=== PATIENT | male | born 1950 | race African-American/Black ===

== ENCOUNTER 2021-05-14 21:13 | Inpatient (IN) | payer MEDICARE, MEDICAID ==
[~2021-05-14] VITALS: Ht 182.9 cm; Wt 121.6 kg
[2021-05-14] MEDS: ALBUTEROL (0.083%) 2.5MG/3ML NEB HHN SCH ×3 (00:20→23:50)
[~2021-05-14 21:13] MED LIST: APIX5TAB PO; BUME2TAB7 PO; OXYC-662 MT
[2021-05-14] MEDS ORDERED: IPRATROPIUM BROMIDE (0.02%) 0.5MG/2.5ML NEB HHN STA (21:34)
[2021-05-14] MEDS ORDERED: DEXAMETHASONE 10 MG/ML VIAL IV ONE (21:45)
[2021-05-14 23:28] LABS: HEMATOCRIT. 47.9 % (42.0-52.0); HEMOGLOBIN. 15.2 g/dL (14.0-18.0); MEAN CORPUSCULAR VOLUME 75.8 fL (80.0-94.0); MEAN PLATELET VOLUME 9.7 fl (7.4-10.4); PLATELET 178 x1000/uL (130-400); RED BLOOD CELL COUNT 6.32 mill/uL (4.7-6.1); RED CELL DISTRIBUTION WIDTH 18.7 % (11.6-14.6)
[2021-05-14 23:38] LABS: CHLORIDE 101 mEq/L (98-107)
[2021-05-14 23:44] LABS: ETHANOL BLOOD < 10 mg/dL
[2021-05-14] MEDS ORDERED: VANCOMYCIN 1 G PREMIX 200 ML IV NR (23:45)
[2021-05-14 23:47] LABS: CREATINE KINASE 37 IU/L (39-308)
[2021-05-14 23:50] LABS: INR 1.2; PROTHROMBIN TIME 12.5 sec (9.6-11.0)
[2021-05-15] VITALS (24 sets, daily range): BP systolic 124–154; BP diastolic 68–116
[2021-05-15] MEDS ORDERED: CEFEPIME 1,000 MG in DEXTROSE 5% WATER 50 ML IV SCH
[2021-05-15 00:27] LABS: NUCLEATED RED BLOOD CELLS 2 /100 WBC; PLATELET ESTIMATE NORMAL
[2021-05-15] MEDS ORDERED: SODIUM POLYSTYRENE SULFONATE 15 G/60 ML BOT PO NR (01:00)
[2021-05-15] MEDS ORDERED: CALCIUM GLUCONATE 100MG/ML 10ML VIAL IV NR (01:00)
[2021-05-15] MEDS ORDERED: FUROSEMIDE 40MG/4ML VIAL IVP NR (01:00)
[2021-05-15] MEDS ORDERED: HYDRALAZINE 20MG/ML VIAL IV PRN (01:15)
[2021-05-15] MEDS ORDERED: ONDANSETRON HCL 4MG/2ML INJ IV PRN (01:15)
[2021-05-15] MEDS ORDERED: HYDROCODONE/ACETAMINOPHEN 5/325MG TABLET PO PRN (01:15)
[2021-05-15] MEDS ORDERED: MAGNESIUM/ALUMINUM HYDROXIDE/SIMETHICONE 30ML UDC PO PRN (01:15)
[2021-05-15] MEDS ORDERED: DIPHENHYDRAMINE 50MG/ML VIAL IV PRN (01:15)
[2021-05-15] MEDS ORDERED: GUAIFENESIN 200MG/10ML SUGAR FREE UDC PO PRN (01:15)
[2021-05-15] MEDS ORDERED: IPRATROPIUM/ALBUTEROL 0.5-3(2.5)MG/3ML NEB HHN PRN (01:15)
[2021-05-15] MEDS ORDERED: CLONIDINE 0.1MG TABLET PO PRN (01:15)
[2021-05-15] MEDS ORDERED: ACETAMINOPHEN 325MG TABLET PO PRN (01:15)
[2021-05-15] MEDS ORDERED: MORPHINE SULFATE 2 MG/ML CPJ (NOT FOR IM USE) IV PRN (01:15)
[2021-05-15] MEDS ORDERED: ENOXAPARIN 150MG/ML SYR SUBCUT SCH (02:00)
[2021-05-15] MEDS: LORAZEPAM 2MG/ML CPJ IV PRN (02:43)
[2021-05-15 06:13] LABS: BG BASE EXCESS -0.5 mmol/L (-2.0-2.0); BG CARBOXYHEMOGLOBIN 1.2 % (0.5-1.5); BG DEOXYHEMOGLOBIN 4.4 % (0.0-5.0); BG FRACTION INSPIRED OXYGEN 100; BG HCO3 ACT 29.5 mmol/L (22.0-26.0); BG METHEMOGLOBIN 0.4 % (0.0-1.5); BG OXYGEN SATURATION 95.5 % (92.0-98.5); BG PCO2 72.2 mmHg (35.0-45.0); BG PH 7.229 (7.350-7.450); BG PO2 86.4 mmHg (75.0-100.0); BG SAMPLE SITE RIGHT RADIAL; BG TOTAL HEMOGLOBIN 16.5 g/dL (12.0-18.0); BG VENT MODE COOL AEROSOL
[2021-05-15] MEDS: SODIUM CHLORIDE 0.9% INJ 3ML FLUSH IVF SCH ×2 (06:39→13:05)
[2021-05-15 09:01] LABS: BG BASE EXCESS 0.2 mmol/L (-2.0-2.0); BG CARBOXYHEMOGLOBIN 0.5 % (0.5-1.5); BG DEOXYHEMOGLOBIN 2.4 % (0.0-5.0); BG HCO3 ACT 28.3 mmol/L (22.0-26.0); BG OXYGEN SATURATION 97.6 % (92.0-98.5); BG OXYHEMOGLOBIN 97.1 % (94.0-97.0); BG PCO2 60.1 mmHg (35.0-45.0); BG PH 7.291 (7.350-7.450); BG PO2 102.1 mmHg (75.0-100.0); BG SAMPLE SITE RIGHT RADIAL; BG TOTAL HEMOGLOBIN 15.9 g/dL (12.0-18.0); BG VENT MODE MASK - BIPAP
[2021-05-15] MEDS ORDERED: NALOXONE HCL 0.4MG/ML VIAL IV PRN (10:00)
[2021-05-15] MEDS ORDERED: AMLODIPINE 5MG TABLET PO SCH (10:00)
[2021-05-15] MEDS ORDERED: AMLO2.5T2 MT (10:32)
[2021-05-15] MEDS ORDERED: FURO-152 MT (10:32)
[2021-05-15] MEDS: FUROSEMIDE 40MG/4ML VIAL IVP SCH (11:01)
[2021-05-15 11:02] LABS: PHOSPHORUS 4.9 mg/dL (2.5-4.9)
[2021-05-15] MEDS ORDERED: LEVOFLOXACIN 500MG PREMIX 100 ML IV NR (12:00)
[2021-05-16] VITALS (14 sets, daily range): BP systolic 129–159; BP diastolic 64–105
[2021-05-16 01:40] LABS: CLARITY URINE CLEAR (CLEAR); COLOR URINE YELLOW (YELLOW); KETONES URINE NEGATIVE (NEGATIVE); LEUKOCYTE ESTERASE URINE NEGATIVE (NEGATIVE); NITRITE URINE NEGATIVE (NEGATIVE); OCCULT BLOOD URINE NEGATIVE (NEGATIVE); PROTEIN URINE TRACE (NEGATIVE); SPECIFIC GRAVITY URINE 1.017 (1.005-1.030)
[2021-05-16 05:43] LABS: CHLORIDE 102 mEq/L (98-107)
[2021-05-16 05:47] LABS: HEMOGLOBIN. 14.9 g/dL (14.0-18.0); MEAN CORPUSCULAR HEMOGLOBIN 24.5 pg (28.0-32.0); MEAN CORPUSCULAR VOLUME 75.9 fL (80.0-94.0); PLATELET 158 x1000/uL (130-400); RED BLOOD CELL COUNT 6.07 mill/uL (4.7-6.1); RED CELL DISTRIBUTION WIDTH 18.8 % (11.6-14.6)
[2021-05-16] MEDS ORDERED: SODIUM POLYSTYRENE SULFONATE 15 G/60 ML BOT PO SCH (08:00)
[2021-05-16] MEDS: FUROSEMIDE 40MG/4ML VIAL IVP SCH (08:08)
[2021-05-16] MEDS: METHYLPREDNISOLONE SOD SUCC 40 MG/ML VIAL IV SCH (08:08)
[2021-05-16] MEDS: AMLODIPINE 5MG TABLET PO SCH (08:09)
[2021-05-16 10:20] LABS: BG CARBOXYHEMOGLOBIN 0.8 % (0.5-1.5); BG DEOXYHEMOGLOBIN 5.1 % (0.0-5.0); BG FRACTION INSPIRED OXYGEN 32; BG HCO3 ACT 31.2 mmol/L (22.0-26.0); BG METHEMOGLOBIN 0.3 % (0.0-1.5); BG OXYGEN SATURATION 94.8 % (92.0-98.5); BG OXYHEMOGLOBIN 93.8 % (94.0-97.0); BG PCO2 62.7 mmHg (35.0-45.0); BG PH 7.315 (7.350-7.450); BG PO2 78.3 mmHg (75.0-100.0); BG SAMPLE SITE RIGHT RADIAL; BG TOTAL HEMOGLOBIN 15.8 g/dL (12.0-18.0); BG VENT MODE NASAL CANNULA
[2021-05-16 11:08] LABS: NUCLEATED RED BLOOD CELLS 3 /100 WBC
[2021-05-16 11:10] LABS: PLATELET ESTIMATE NORMAL
[2021-05-16] MEDS: LEVOFLOXACIN 250MG PREMIX 50 ML IV SCH (11:17)
[2021-05-16] MEDS: NYSTATIN 100,000 UNITS/ML 5ML UDC SSW SCH (17:19)
[2021-05-16] MEDS: GUAIFENESIN 600MG ER TABLET PO SCH (20:47)
[2021-05-16] MEDS: LORAZEPAM 2MG/ML CPJ IV PRN (22:13)
[2021-05-17] VITALS (24 sets, daily range): BP systolic 103–163; BP diastolic 49–119
[2021-05-17] MEDS: NYSTATIN 100,000 UNITS/ML 5ML UDC SSW SCH ×5 (00:27→23:32)
[2021-05-17 06:50] LABS: HEMATOCRIT. 50.2 % (42.0-52.0); HEMOGLOBIN. 16.1 g/dL (14.0-18.0); MEAN CORPUSCULAR HEMOGLOBIN 24.6 pg (28.0-32.0); MEAN CORPUSCULAR VOLUME 76.7 fL (80.0-94.0); MEAN PLATELET VOLUME 10.7 fl (7.4-10.4); PLATELET 171 x1000/uL (130-400); RED BLOOD CELL COUNT 6.55 mill/uL (4.7-6.1); RED CELL DISTRIBUTION WIDTH 19.2 % (11.6-14.6)
[2021-05-17 07:05] LABS: PHOSPHORUS 5.3 mg/dL (2.5-4.9)
[2021-05-17] MEDS: IPRATROPIUM/ALBUTEROL 0.5-3(2.5)MG/3ML NEB HHN SCH ×3 (08:39→20:25)
[2021-05-17] MEDS: AMLODIPINE 5MG TABLET PO SCH ×2 (09:00→09:15)
[2021-05-17] MEDS: GUAIFENESIN 600MG ER TABLET PO SCH ×3 (09:00→20:20)
[2021-05-17] MEDS: FUROSEMIDE 40MG/4ML VIAL IVP SCH (09:15)
[2021-05-17] MEDS: METHYLPREDNISOLONE SOD SUCC 40 MG/ML VIAL IV SCH ×3 (09:15→21:54)
[2021-05-17 10:18] LABS: BG BASE EXCESS 2.3 mmol/L (-2.0-2.0); BG CARBOXYHEMOGLOBIN 0.6 % (0.5-1.5); BG FRACTION INSPIRED OXYGEN 44; BG METHEMOGLOBIN 0.3 % (0.0-1.5); BG OXYGEN SATURATION 88.9 % (92.0-98.5); BG OXYHEMOGLOBIN 88.1 % (94.0-97.0); BG PCO2 72.2 mmHg (35.0-45.0); BG PH 7.265 (7.350-7.450); BG PO2 59.7 mmHg (75.0-100.0); BG SAMPLE SITE LEFT RADIAL; BG TOTAL HEMOGLOBIN 16.6 g/dL (12.0-18.0); BG VENT MODE NASAL CANNULA
[2021-05-17] MEDS: LORAZEPAM 2MG/ML CPJ IV PRN (10:41)
[2021-05-17] MEDS: LEVOFLOXACIN 250MG PREMIX 50 ML IV SCH (11:21)
[2021-05-17] MEDS ORDERED: FUROSEMIDE 40MG/4ML VIAL IVP SCH (11:45)
[2021-05-17 17:50] LABS: BG BASE EXCESS 2.1 mmol/L (-2.0-2.0); BG CARBOXYHEMOGLOBIN 0.4 % (0.5-1.5); BG DEOXYHEMOGLOBIN 10.5 % (0.0-5.0); BG FRACTION INSPIRED OXYGEN 70; BG HCO3 ACT 38.3 mmol/L (22.0-26.0); BG METHEMOGLOBIN 0.3 % (0.0-1.5); BG OXYGEN SATURATION 89.4 % (92.0-98.5); BG OXYHEMOGLOBIN 88.8 % (94.0-97.0); BG PH 7.067 (7.350-7.450); BG PO2 69.8 mmHg (75.0-100.0); BG SAMPLE SITE LEFT RADIAL; BG VENT MODE MASK - BIPAP
[2021-05-17] MEDS ORDERED: PHENYLEPHRINE 100 MG in DEXT 5% WATER 240 ML IV PRN (18:00)
[2021-05-17 19:04] LABS: BG BASE EXCESS -0.1 mmol/L (-2.0-2.0); BG CARBOXYHEMOGLOBIN 0.5 % (0.5-1.5); BG DEOXYHEMOGLOBIN 0.9 % (0.0-5.0); BG FRACTION INSPIRED OXYGEN 100; BG HCO3 ACT 27.9 mmol/L (22.0-26.0); BG METHEMOGLOBIN 0.3 % (0.0-1.5); BG OXYGEN SATURATION 99.1 % (92.0-98.5); BG OXYHEMOGLOBIN 98.3 % (94.0-97.0); BG PCO2 58.5 mmHg (35.0-45.0); BG PH 7.296 (7.350-7.450); BG PO2 159.6 mmHg (75.0-100.0); BG SAMPLE SITE ALINE; BG TOTAL HEMOGLOBIN 16.1 g/dL (12.0-18.0); BG VENT MODE VENT - AC
[2021-05-17] MEDS: PROPOFOL 10MG/ML 100ML 100 ML IV PRN (20:13)
[2021-05-18] VITALS (95 sets, daily range): BP systolic 79–139; BP diastolic 40–105
[2021-05-18] MEDS: IPRATROPIUM/ALBUTEROL 0.5-3(2.5)MG/3ML NEB HHN SCH ×4 (02:16→20:43)
[2021-05-18] MEDS: PROPOFOL 10MG/ML 100ML 100 ML IV PRN ×3 (03:27→21:25)
[2021-05-18 05:33] LABS: HEMATOCRIT. 42.2 % (42.0-52.0); HEMOGLOBIN. 13.8 g/dL (14.0-18.0); MEAN CORPUSCULAR HEMOGLOBIN 24.3 pg (28.0-32.0); MEAN CORPUSCULAR VOLUME 74.1 fL (80.0-94.0); MEAN PLATELET VOLUME 10.2 fl (7.4-10.4); PLATELET 133 x1000/uL (130-400); RED BLOOD CELL COUNT 5.69 mill/uL (4.7-6.1); RED CELL DISTRIBUTION WIDTH 18.6 % (11.6-14.6)
[2021-05-18 05:56] LABS: PHOSPHORUS 3.4 mg/dL (2.5-4.9)
[2021-05-18] MEDS: NYSTATIN 100,000 UNITS/ML 5ML UDC SSW SCH ×3 (06:00→16:47)
[2021-05-18] MEDS: METHYLPREDNISOLONE SOD SUCC 40 MG/ML VIAL IV SCH ×3 (07:01→21:35)
[2021-05-18] MEDS: AMLODIPINE 5MG TABLET PO SCH (08:16)
[2021-05-18] MEDS: GUAIFENESIN 600MG ER TABLET PO SCH ×2 (08:23→21:00)
[2021-05-18] MEDS: FUROSEMIDE 40MG/4ML VIAL IVP SCH (09:00)
[2021-05-18 09:26] LABS: BG BASE EXCESS 6.5 mmol/L (-2.0-2.0); BG DEOXYHEMOGLOBIN 3.5 % (0.0-5.0); BG FRACTION INSPIRED OXYGEN 50; BG HCO3 ACT 31.3 mmol/L (22.0-26.0); BG METHEMOGLOBIN 0.3 % (0.0-1.5); BG OXYGEN SATURATION 96.5 % (92.0-98.5); BG OXYHEMOGLOBIN 95.2 % (94.0-97.0); BG PCO2 44.9 mmHg (35.0-45.0); BG PH 7.461 (7.350-7.450); BG PO2 83.6 mmHg (75.0-100.0); BG SAMPLE SITE RIGHT RADIAL; BG TOTAL HEMOGLOBIN 15.3 g/dL (12.0-18.0); BG TOTAL RESPIRATORY RATE 16 b/min; BG VENT MODE VENT - AC
[2021-05-18 09:34] LABS: NUCLEATED RED BLOOD CELLS 7 /100 WBC; PLATELET ESTIMATE NORMAL
[2021-05-18] MEDS ORDERED: PANTOPRAZOLE SODIUM 40 MG/VIAL IV SCH (10:00)
[2021-05-18] MEDS: DEXT 5%/0.45% NACL 1000ML 1,000 ML IV SCH (10:42)
[2021-05-18 11:09] LABS: CREATINE KINASE 819 IU/L (39-308)
[2021-05-18] MEDS: CARVEDILOL 3.125 MG TABLET PO SCH ×2 (11:35→21:34)
[2021-05-18] MEDS: LEVOFLOXACIN 250MG PREMIX 50 ML IV SCH (12:20)
[2021-05-18 17:04] LABS: NUCLEATED RED BLOOD CELLS 21 /100 WBC; PLATELET ESTIMATE NORMAL
[2021-05-19] VITALS (97 sets, daily range): BP systolic 91–149; BP diastolic 50–107
[2021-05-19] MEDS: IPRATROPIUM/ALBUTEROL 0.5-3(2.5)MG/3ML NEB HHN SCH ×4 (01:11→21:00)
[2021-05-19] MEDS: METHYLPREDNISOLONE SOD SUCC 40 MG/ML VIAL IV SCH ×2 (05:43→17:54)
[2021-05-19] MEDS: DEXT 5%/0.45% NACL 1000ML 1,000 ML IV SCH (05:43)
[2021-05-19] MEDS: NYSTATIN 100,000 UNITS/ML 5ML UDC SSW SCH ×5 (05:44→23:45)
[2021-05-19 06:56] LABS: HEMATOCRIT. 44.6 % (42.0-52.0); HEMOGLOBIN. 14.5 g/dL (14.0-18.0); MEAN CORPUSCULAR HEMOGLOBIN 24.3 pg (28.0-32.0); MEAN CORPUSCULAR VOLUME 74.7 fL (80.0-94.0); MEAN PLATELET VOLUME 10.7 fl (7.4-10.4); PLATELET 109 x1000/uL (130-400); RED BLOOD CELL COUNT 5.97 mill/uL (4.7-6.1); RED CELL DISTRIBUTION WIDTH 18.6 % (11.6-14.6)
[2021-05-19] MEDS: PROPOFOL 10MG/ML 100ML 100 ML IV PRN ×2 (08:39→16:54)
[2021-05-19 08:56] LABS: BG BASE EXCESS 4.5 mmol/L (-2.0-2.0); BG CARBOXYHEMOGLOBIN 0.7 % (0.5-1.5); BG DEOXYHEMOGLOBIN 1.2 % (0.0-5.0); BG FRACTION INSPIRED OXYGEN 50; BG HCO3 ACT 29.7 mmol/L (22.0-26.0); BG METHEMOGLOBIN 0.3 % (0.0-1.5); BG OXYGEN SATURATION 98.8 % (92.0-98.5); BG OXYHEMOGLOBIN 97.8 % (94.0-97.0); BG PCO2 45.7 mmHg (35.0-45.0); BG PH 7.431 (7.350-7.450); BG PO2 143.1 mmHg (75.0-100.0); BG SAMPLE SITE RIGHT RADIAL; BG TOTAL HEMOGLOBIN 16.4 g/dL (12.0-18.0); BG VENT MODE VENT - AC
[2021-05-19] MEDS ORDERED: PROPOFOL 10MG/ML 100ML 100 ML IV PRN (09:15)
[2021-05-19] MEDS: FAMOTIDINE 20MG/2ML VIAL IV SCH (09:49)
[2021-05-19] MEDS: GUAIFENESIN 600MG ER TABLET PO SCH (09:49)
[2021-05-19] MEDS: FUROSEMIDE 40MG/4ML VIAL IVP SCH (09:49)
[2021-05-19] MEDS: AMLODIPINE 5MG TABLET PO SCH (09:50)
[2021-05-19] MEDS: CARVEDILOL 3.125 MG TABLET PO SCH (09:50)
[2021-05-19] MEDS: LEVOFLOXACIN 250MG PREMIX 50 ML IV SCH (11:21)
[2021-05-19] MEDS: GUAIFENESIN 200MG/10ML SUGAR FREE UDC NG SCH ×3 (11:21→23:45)
[2021-05-19 14:25] LABS: NUCLEATED RED BLOOD CELLS 7 /100 WBC
[2021-05-19 14:26] LABS: PLATELET ESTIMATE SLIGHTLY DECREASED
[2021-05-19] MEDS: ENOXAPARIN 120MG/0.8ML SYR SUBCUT SCH (17:55)
[2021-05-19] MEDS: CARVEDILOL 6.25 MG TABLET PO SCH ×2 (18:20→23:46)
[2021-05-19] MEDS ORDERED: CARVEDILOL 6.25 MG TABLET PO SCH (21:00)
[2021-05-20] VITALS (74 sets, daily range): BP systolic 101–149; BP diastolic 32–104
[2021-05-20] MEDS: IPRATROPIUM/ALBUTEROL 0.5-3(2.5)MG/3ML NEB HHN SCH ×4 (01:49→20:34)
[2021-05-20] MEDS: GUAIFENESIN 200MG/10ML SUGAR FREE UDC NG SCH ×4 (05:03→23:37)
[2021-05-20] MEDS: ENOXAPARIN 120MG/0.8ML SYR SUBCUT SCH ×2 (05:03→18:09)
[2021-05-20] MEDS: NYSTATIN 100,000 UNITS/ML 5ML UDC SSW SCH ×4 (05:03→23:37)
[2021-05-20] MEDS: METHYLPREDNISOLONE SOD SUCC 40 MG/ML VIAL IV SCH ×2 (05:03→18:08)
[2021-05-20] MEDS: CARVEDILOL 6.25 MG TABLET PO SCH (05:17)
[2021-05-20 05:40] LABS: HEMATOCRIT. 46.2 % (42.0-52.0); HEMOGLOBIN. 15.2 g/dL (14.0-18.0); MEAN CORPUSCULAR HEMOGLOBIN 24.4 pg (28.0-32.0); MEAN CORPUSCULAR VOLUME 73.9 fL (80.0-94.0); MEAN PLATELET VOLUME 9.8 fl (7.4-10.4); PLATELET 94 x1000/uL (130-400); RED BLOOD CELL COUNT 6.25 mill/uL (4.7-6.1); RED CELL DISTRIBUTION WIDTH 18.5 % (11.6-14.6)
[2021-05-20 08:35] LABS: BG BASE EXCESS 5.8 mmol/L (-2.0-2.0); BG CARBOXYHEMOGLOBIN 0.7 % (0.5-1.5); BG FRACTION INSPIRED OXYGEN 50; BG HCO3 ACT 30.6 mmol/L (22.0-26.0); BG METHEMOGLOBIN 0.3 % (0.0-1.5); BG PCO2 44.6 mmHg (35.0-45.0); BG PH 7.454 (7.350-7.450); BG PO2 101.7 mmHg (75.0-100.0); BG SAMPLE SITE LEFT RADIAL; BG TOTAL RESPIRATORY RATE 16 b/min; BG VENT MODE VENT - AC
[2021-05-20] MEDS: FUROSEMIDE 40MG/4ML VIAL IVP SCH (09:07)
[2021-05-20] MEDS: AMLODIPINE 5MG TABLET PO SCH (09:07)
[2021-05-20] MEDS: FAMOTIDINE 20MG/2ML VIAL IV SCH (09:07)
[2021-05-20] MEDS: DOCUSATE SODIUM 100MG CAPSULE PO PRN (09:28)
[2021-05-20] MEDS ORDERED: PROPOFOL 10MG/ML 100ML 100 ML IV PRN (09:45)
[2021-05-20] MEDS ORDERED: DEXTROSE 50% WATER 50ML SYRINGE IV PRN (12:45)
[2021-05-20] MEDS: BLOOD SUGAR DIAGNOSTIC STRIP TEST SCH ×3 (12:57→21:04)
[2021-05-20] MEDS: INSULIN LISPRO 100 UNITS/ML SUBCUT SCH ×3 (13:11→21:04)
[2021-05-20] MEDS ORDERED: VANCOMYCIN 2,000 MG in DEXT 5% WATER 500 ML IV NR (17:30)
[2021-05-20 18:03] LABS: NUCLEATED RED BLOOD CELLS 1 /100 WBC; PLATELET ESTIMATE DECREASED
[2021-05-20] MEDS: CARVEDILOL 12.5MG TABLET PO SCH (21:03)
[2021-05-21] VITALS (63 sets, daily range): BP systolic 108–172; BP diastolic 38–101
[2021-05-21] MEDS: IPRATROPIUM/ALBUTEROL 0.5-3(2.5)MG/3ML NEB HHN SCH ×4 (02:14→20:41)
[2021-05-21] MEDS: ENOXAPARIN 120MG/0.8ML SYR SUBCUT SCH ×2 (05:27→17:30)
[2021-05-21] MEDS: GUAIFENESIN 200MG/10ML SUGAR FREE UDC NG SCH ×4 (05:27→23:23)
[2021-05-21] MEDS: NYSTATIN 100,000 UNITS/ML 5ML UDC SSW SCH ×3 (05:27→17:30)
[2021-05-21] MEDS: METHYLPREDNISOLONE SOD SUCC 40 MG/ML VIAL IV SCH ×2 (05:27→17:30)
[2021-05-21 06:02] LABS: HEMATOCRIT. 46.1 % (42.0-52.0); HEMOGLOBIN. 14.9 g/dL (14.0-18.0); MEAN CORPUSCULAR HEMOGLOBIN 24.1 pg (28.0-32.0); MEAN CORPUSCULAR VOLUME 74.5 fL (80.0-94.0); PLATELET 100 x1000/uL (130-400); RED BLOOD CELL COUNT 6.19 mill/uL (4.7-6.1); RED CELL DISTRIBUTION WIDTH 18.6 % (11.6-14.6)
[2021-05-21 07:21] LABS: BG BASE EXCESS 6.2 mmol/L (-2.0-2.0); BG CARBOXYHEMOGLOBIN 0.6 % (0.5-1.5); BG DEOXYHEMOGLOBIN 1.4 % (0.0-5.0); BG FRACTION INSPIRED OXYGEN 45; BG HCO3 ACT 29.9 mmol/L (22.0-26.0); BG METHEMOGLOBIN 0.4 % (0.0-1.5); BG OXYGEN SATURATION 98.6 % (92.0-98.5); BG OXYHEMOGLOBIN 97.6 % (94.0-97.0); BG PCO2 39.6 mmHg (35.0-45.0); BG PH 7.496 (7.350-7.450); BG PO2 110.2 mmHg (75.0-100.0); BG SAMPLE SITE RIGHT RADIAL; BG TOTAL HEMOGLOBIN 15.8 g/dL (12.0-18.0); BG VENT MODE VENT - AC
[2021-05-21] MEDS: BLOOD SUGAR DIAGNOSTIC STRIP TEST SCH ×4 (08:09→20:19)
[2021-05-21] MEDS: FAMOTIDINE 20MG/2ML VIAL IV SCH (08:15)
[2021-05-21] MEDS: DOCUSATE SODIUM 100MG CAPSULE PO PRN (08:16)
[2021-05-21] MEDS: CARVEDILOL 12.5MG TABLET PO SCH ×2 (08:16→20:07)
[2021-05-21] MEDS: FUROSEMIDE 40MG/4ML VIAL IVP SCH (08:16)
[2021-05-21] MEDS: INSULIN LISPRO 100 UNITS/ML SUBCUT SCH ×4 (08:17→20:09)
[2021-05-21] MEDS: AMLODIPINE 5MG TABLET PO SCH (08:23)
[2021-05-21 09:43] LABS: NUCLEATED RED BLOOD CELLS 5 /100 WBC; PLATELET ESTIMATE DECREASED
[2021-05-21 12:19] LABS: BG CARBOXYHEMOGLOBIN 0.5 % (0.5-1.5); BG DEOXYHEMOGLOBIN 4.3 % (0.0-5.0); BG HCO3 ACT 32.1 mmol/L (22.0-26.0); BG METHEMOGLOBIN 0.2 % (0.0-1.5); BG OXYGEN SATURATION 95.7 % (92.0-98.5); BG PCO2 55.5 mmHg (35.0-45.0); BG PO2 82.7 mmHg (75.0-100.0); BG SAMPLE SITE RIGHT RADIAL; BG TOTAL HEMOGLOBIN 17.6 g/dL (12.0-18.0); BG VENT MODE VENT - CPAP
[2021-05-21] MEDS ORDERED: PROPOFOL 10MG/ML 100ML 100 ML IV PRN (13:45)
[2021-05-22] VITALS (47 sets, daily range): BP systolic 110–166; BP diastolic 52–88
[2021-05-22] MEDS: IPRATROPIUM/ALBUTEROL 0.5-3(2.5)MG/3ML NEB HHN SCH ×4 (00:10→20:29)
[2021-05-22] MEDS: METHYLPREDNISOLONE SOD SUCC 40 MG/ML VIAL IV SCH (05:59)
[2021-05-22] MEDS: ENOXAPARIN 120MG/0.8ML SYR SUBCUT SCH ×2 (05:59→17:42)
[2021-05-22] MEDS: GUAIFENESIN 200MG/10ML SUGAR FREE UDC NG SCH ×3 (06:00→17:41)
[2021-05-22 06:51] LABS: HEMATOCRIT. 47.5 % (42.0-52.0); HEMOGLOBIN. 15.2 g/dL (14.0-18.0); MEAN CORPUSCULAR HEMOGLOBIN 23.7 pg (28.0-32.0); MEAN CORPUSCULAR VOLUME 74.2 fL (80.0-94.0); MEAN PLATELET VOLUME 9.9 fl (7.4-10.4); PLATELET 108 x1000/uL (130-400); RED CELL DISTRIBUTION WIDTH 18.7 % (11.6-14.6)
[2021-05-22] MEDS: BLOOD SUGAR DIAGNOSTIC STRIP TEST SCH ×4 (07:07→21:04)
[2021-05-22] MEDS: INSULIN LISPRO 100 UNITS/ML SUBCUT SCH ×4 (07:22→21:19)
[2021-05-22 08:04] LABS: BG BASE EXCESS 4.2 mmol/L (-2.0-2.0); BG CARBOXYHEMOGLOBIN 0.8 % (0.5-1.5); BG DEOXYHEMOGLOBIN 2.1 % (0.0-5.0); BG FRACTION INSPIRED OXYGEN 40; BG HCO3 ACT 28.7 mmol/L (22.0-26.0); BG METHEMOGLOBIN 0.4 % (0.0-1.5); BG OXYGEN SATURATION 97.9 % (92.0-98.5); BG OXYHEMOGLOBIN 96.7 % (94.0-97.0); BG PCO2 42.2 mmHg (35.0-45.0); BG PO2 101.1 mmHg (75.0-100.0); BG SAMPLE SITE RIGHT RADIAL; BG TOTAL HEMOGLOBIN 16.3 g/dL (12.0-18.0); BG TOTAL RESPIRATORY RATE 29 b/min; BG VENT MODE VENT - SIMV
[2021-05-22] MEDS: FUROSEMIDE 40MG/4ML VIAL IVP SCH (08:50)
[2021-05-22] MEDS: AMLODIPINE 5MG TABLET PO SCH (08:50)
[2021-05-22] MEDS: CARVEDILOL 12.5MG TABLET PO SCH ×2 (08:50→21:18)
[2021-05-22] MEDS: FAMOTIDINE 20MG/2ML VIAL IV SCH (08:50)
[2021-05-22] MEDS: VANCOMYCIN 1 G PREMIX 200 ML IV SCH (11:13)
[2021-05-22 11:48] LABS: BG BASE EXCESS 7.4 mmol/L (-2.0-2.0); BG CARBOXYHEMOGLOBIN 0.8 % (0.5-1.5); BG DEOXYHEMOGLOBIN 1.9 % (0.0-5.0); BG FRACTION INSPIRED OXYGEN 40; BG HCO3 ACT 32.6 mmol/L (22.0-26.0); BG METHEMOGLOBIN 0.4 % (0.0-1.5); BG OXYGEN SATURATION 98.1 % (92.0-98.5); BG OXYHEMOGLOBIN 96.9 % (94.0-97.0); BG PCO2 47.1 mmHg (35.0-45.0); BG PH 7.458 (7.350-7.450); BG PO2 104.5 mmHg (75.0-100.0); BG SAMPLE SITE RIGHT RADIAL; BG TOTAL HEMOGLOBIN 16.6 g/dL (12.0-18.0); BG VENT MODE VENT - CPAP
[2021-05-22 12:28] LABS: NUCLEATED RED BLOOD CELLS 5 /100 WBC; PLATELET ESTIMATE DECREASED
[2021-05-22] MEDS ORDERED: RACEPINEPHRINE 2.25% 0.5ML NEB VIAL HHN NR (13:45)
[2021-05-22] MEDS: METHYLPREDNISOLONE SOD SUCC 125 MG/2 ML VIAL IV SCH ×2 (14:46→21:18)
[2021-05-22] MEDS: PROPOFOL 10MG/ML 100ML 100 ML IV PRN (21:52)
[2021-05-23] VITALS (47 sets, daily range): BP systolic 105–175; BP diastolic 51–123
[2021-05-23] MEDS: GUAIFENESIN 200MG/10ML SUGAR FREE UDC NG SCH ×4 (01:25→18:13)
[2021-05-23] MEDS: IPRATROPIUM/ALBUTEROL 0.5-3(2.5)MG/3ML NEB HHN SCH ×4 (02:23→20:34)
[2021-05-23 06:23] LABS: HEMATOCRIT. 49.4 % (42.0-52.0); MEAN CORPUSCULAR HEMOGLOBIN 24.5 pg (28.0-32.0); MEAN CORPUSCULAR VOLUME 75.6 fL (80.0-94.0); MEAN PLATELET VOLUME 10.1 fl (7.4-10.4); PLATELET 115 x1000/uL (130-400); RED BLOOD CELL COUNT 6.53 mill/uL (4.7-6.1); RED CELL DISTRIBUTION WIDTH 18.6 % (11.6-14.6)
[2021-05-23] MEDS: ENOXAPARIN 120MG/0.8ML SYR SUBCUT SCH ×2 (06:53→18:00)
[2021-05-23] MEDS: METHYLPREDNISOLONE SOD SUCC 125 MG/2 ML VIAL IV SCH ×3 (06:53→22:05)
[2021-05-23] MEDS: BLOOD SUGAR DIAGNOSTIC STRIP TEST SCH ×4 (08:39→21:00)
[2021-05-23] MEDS: AMLODIPINE 5MG TABLET PO SCH (08:49)
[2021-05-23] MEDS: FAMOTIDINE 20MG/2ML VIAL IV SCH (08:49)
[2021-05-23] MEDS: FUROSEMIDE 40MG/4ML VIAL IVP SCH (08:49)
[2021-05-23] MEDS: CARVEDILOL 12.5MG TABLET PO SCH ×2 (08:49→22:05)
[2021-05-23] MEDS: INSULIN LISPRO 100 UNITS/ML SUBCUT SCH ×4 (08:50→22:06)
[2021-05-23] MEDS ORDERED: KCL 20MEQ/100ML PREMIX 100 ML IV SCH (09:00)
[2021-05-23 10:37] LABS: BG BASE EXCESS 5.7 mmol/L (-2.0-2.0); BG CARBOXYHEMOGLOBIN 0.2 % (0.5-1.5); BG DEOXYHEMOGLOBIN 2.7 % (0.0-5.0); BG FRACTION INSPIRED OXYGEN 40; BG HCO3 ACT 31.3 mmol/L (22.0-26.0); BG METHEMOGLOBIN 0.2 % (0.0-1.5); BG OXYGEN SATURATION 97.3 % (92.0-98.5); BG OXYHEMOGLOBIN 96.9 % (94.0-97.0); BG PCO2 48.3 mmHg (35.0-45.0); BG PO2 97.1 mmHg (75.0-100.0); BG SAMPLE SITE RIGHT RADIAL; BG TOTAL HEMOGLOBIN 16.9 g/dL (12.0-18.0); BG VENT MODE VENT - SIMV
[2021-05-23 10:56] LABS: NUCLEATED RED BLOOD CELLS 2 /100 WBC; PLATELET ESTIMATE MARKEDLY DECREASED
[2021-05-23] MEDS: VANCOMYCIN 1 G PREMIX 200 ML IV SCH (11:13)
[2021-05-23 18:07] LABS: BG BASE EXCESS 3.8 mmol/L (-2.0-2.0); BG CARBOXYHEMOGLOBIN 0.3 % (0.5-1.5); BG DEOXYHEMOGLOBIN 0.7 % (0.0-5.0); BG HCO3 ACT 30.5 mmol/L (22.0-26.0); BG METHEMOGLOBIN 0.6 % (0.0-1.5); BG OXYGEN SATURATION 99.3 % (92.0-98.5); BG OXYHEMOGLOBIN 98.4 % (94.0-97.0); BG PCO2 52.1 mmHg (35.0-45.0); BG PH 7.385 (7.350-7.450); BG PO2 266.2 mmHg (75.0-100.0); BG SAMPLE SITE RIGHT RADIAL; BG TOTAL HEMOGLOBIN 18.3 g/dL (12.0-18.0); BG VENT MODE VENT - AC
[2021-05-23 18:31] LABS: HEMATOCRIT 51.4 % (42.0-52.0); HEMOGLOBIN 16.8 g/dL (14.0-18.0)
[2021-05-23] MEDS: PROPOFOL 10MG/ML 100ML 100 ML IV PRN (18:44)
[2021-05-23 19:41] LABS: HEMATOCRIT. 52.1 % (42.0-52.0); HEMOGLOBIN. 16.7 g/dL (14.0-18.0); MEAN CORPUSCULAR HEMOGLOBIN 24.2 pg (28.0-32.0); MEAN CORPUSCULAR VOLUME 75.4 fL (80.0-94.0); MEAN PLATELET VOLUME 10.9 fl (7.4-10.4); PLATELET 167 x1000/uL (130-400); RED BLOOD CELL COUNT 6.91 mill/uL (4.7-6.1); RED CELL DISTRIBUTION WIDTH 19.1 % (11.6-14.6)
[2021-05-23 21:34] LABS: NUCLEATED RED BLOOD CELLS 7 /100 WBC; PLATELET ESTIMATE NORMAL
[2021-05-24] VITALS (44 sets, daily range): BP systolic 101–163; BP diastolic 45–95
[2021-05-24] MEDS: IPRATROPIUM/ALBUTEROL 0.5-3(2.5)MG/3ML NEB HHN SCH ×4 (02:24→20:48)
[2021-05-24] MEDS: GUAIFENESIN 200MG/10ML SUGAR FREE UDC NG SCH ×4 (02:46→17:37)
[2021-05-24] MEDS: METHYLPREDNISOLONE SOD SUCC 125 MG/2 ML VIAL IV SCH ×3 (05:46→22:04)
[2021-05-24 05:48] LABS: HEMATOCRIT. 48.7 % (42.0-52.0); HEMOGLOBIN. 15.9 g/dL (14.0-18.0); MEAN CORPUSCULAR HEMOGLOBIN 24.1 pg (28.0-32.0); MEAN CORPUSCULAR VOLUME 73.8 fL (80.0-94.0); MEAN PLATELET VOLUME 9.9 fl (7.4-10.4); PLATELET 120 x1000/uL (130-400)
[2021-05-24] MEDS: BLOOD SUGAR DIAGNOSTIC STRIP TEST SCH ×4 (08:31→21:58)
[2021-05-24] MEDS: CARVEDILOL 12.5MG TABLET PO SCH ×2 (08:38→21:00)
[2021-05-24] MEDS: AMLODIPINE 5MG TABLET PO SCH (08:38)
[2021-05-24] MEDS: FAMOTIDINE 20MG/2ML VIAL IV SCH (08:38)
[2021-05-24] MEDS: INSULIN LISPRO 100 UNITS/ML SUBCUT SCH ×4 (08:39→22:05)
[2021-05-24] MEDS ORDERED: PROPOFOL 10MG/ML 100ML 100 ML IV PRN (09:45)
[2021-05-24 10:21] LABS: NUCLEATED RED BLOOD CELLS 3 /100 WBC; PLATELET ESTIMATE DECREASED
[2021-05-24] MEDS: SODIUM CHLORIDE 0.45% 1,000 ML IV SCH (11:59)
[2021-05-24] MEDS: PROPOFOL 10MG/ML 100ML 100 ML IV PRN (13:08)
[2021-05-24] MEDS: VANCOMYCIN 750 MG PREMIX 150 ML IV SCH (13:53)
[2021-05-24 14:46] LABS: BG BASE EXCESS 5.6 mmol/L (-2.0-2.0); BG CARBOXYHEMOGLOBIN 0.8 % (0.5-1.5); BG DEOXYHEMOGLOBIN 1.4 % (0.0-5.0); BG FRACTION INSPIRED OXYGEN 50; BG HCO3 ACT 29.2 mmol/L (22.0-26.0); BG METHEMOGLOBIN 0.4 % (0.0-1.5); BG OXYGEN SATURATION 98.6 % (92.0-98.5); BG OXYHEMOGLOBIN 97.4 % (94.0-97.0); BG PCO2 39.1 mmHg (35.0-45.0); BG PH 7.491 (7.350-7.450); BG SAMPLE SITE RIGHT RADIAL; BG TOTAL HEMOGLOBIN 16.5 g/dL (12.0-18.0); BG TOTAL RESPIRATORY RATE 17 b/min; BG VENT MODE VENT - AC
[2021-05-25] VITALS (49 sets, daily range): BP systolic 90–165; BP diastolic 46–105
[2021-05-25] MEDS ORDERED: PROPOFOL 10MG/ML 100ML 100 ML IV PRN (00:30)
[2021-05-25] MEDS: SODIUM CHLORIDE 0.45% 1,000 ML IV SCH (00:37)
[2021-05-25] MEDS: GUAIFENESIN 200MG/10ML SUGAR FREE UDC NG SCH ×4 (00:40→17:31)
[2021-05-25] MEDS: IPRATROPIUM/ALBUTEROL 0.5-3(2.5)MG/3ML NEB HHN SCH ×4 (01:37→19:56)
[2021-05-25 05:45] LABS: HEMATOCRIT. 46.8 % (42.0-52.0); HEMOGLOBIN. 15.2 g/dL (14.0-18.0); MEAN CORPUSCULAR HEMOGLOBIN 24.2 pg (28.0-32.0); MEAN CORPUSCULAR VOLUME 74.4 fL (80.0-94.0); MEAN PLATELET VOLUME 10.4 fl (7.4-10.4); PLATELET 118 x1000/uL (130-400); RED BLOOD CELL COUNT 6.29 mill/uL (4.7-6.1); RED CELL DISTRIBUTION WIDTH 18.8 % (11.6-14.6)
[2021-05-25] MEDS: BLOOD SUGAR DIAGNOSTIC STRIP TEST SCH ×3 (05:51→17:49)
[2021-05-25] MEDS: METHYLPREDNISOLONE SOD SUCC 125 MG/2 ML VIAL IV SCH ×3 (05:52→21:27)
[2021-05-25] MEDS: INSULIN LISPRO 100 UNITS/ML SUBCUT SCH ×3 (05:53→17:33)
[2021-05-25] MEDS ORDERED: DEXT 5% WATER 100 ML IV ONE (08:30)
[2021-05-25 08:44] LABS: BG BASE EXCESS 5.6 mmol/L (-2.0-2.0); BG CARBOXYHEMOGLOBIN 0.5 % (0.5-1.5); BG DEOXYHEMOGLOBIN 1.4 % (0.0-5.0); BG FRACTION INSPIRED OXYGEN 50; BG HCO3 ACT 29.1 mmol/L (22.0-26.0); BG METHEMOGLOBIN 0.4 % (0.0-1.5); BG OXYGEN SATURATION 98.6 % (92.0-98.5); BG OXYHEMOGLOBIN 97.7 % (94.0-97.0); BG PCO2 38.5 mmHg (35.0-45.0); BG PH 7.496 (7.350-7.450); BG SAMPLE SITE RIGHT RADIAL; BG TOTAL HEMOGLOBIN 16.1 g/dL (12.0-18.0); BG VENT MODE VENT - AC
[2021-05-25] MEDS: FAMOTIDINE 20MG/2ML VIAL IV SCH (08:55)
[2021-05-25] MEDS: CARVEDILOL 12.5MG TABLET PO SCH ×2 (08:55→21:27)
[2021-05-25] MEDS: AMLODIPINE 5MG TABLET PO SCH (08:55)
[2021-05-25 12:01] LABS: BG BASE EXCESS 4.6 mmol/L (-2.0-2.0); BG CARBOXYHEMOGLOBIN 0.2 % (0.5-1.5); BG DEOXYHEMOGLOBIN 2.2 % (0.0-5.0); BG FRACTION INSPIRED OXYGEN 40; BG HCO3 ACT 29.4 mmol/L (22.0-26.0); BG METHEMOGLOBIN 0.4 % (0.0-1.5); BG OXYGEN SATURATION 97.8 % (92.0-98.5); BG OXYHEMOGLOBIN 97.2 % (94.0-97.0); BG PCO2 43.6 mmHg (35.0-45.0); BG PH 7.446 (7.350-7.450); BG PO2 103.1 mmHg (75.0-100.0); BG SAMPLE SITE RIGHT RADIAL; BG TOTAL HEMOGLOBIN 17.2 g/dL (12.0-18.0); BG VENT MODE VENT - CPAP
[2021-05-25 12:16] LABS: PLATELET ESTIMATE DECREASED
[2021-05-25] MEDS ORDERED: RACEPINEPHRINE 2.25% 0.5ML NEB VIAL HHN NR (13:15)
[2021-05-25] MEDS: VANCOMYCIN 750 MG PREMIX 150 ML IV SCH (14:20)
[2021-05-26] VITALS (39 sets, daily range): BP systolic 117–154; BP diastolic 48–95
[2021-05-26] MEDS: GUAIFENESIN 200MG/10ML SUGAR FREE UDC NG SCH ×5 (00:22→23:30)
[2021-05-26] MEDS: INSULIN LISPRO 100 UNITS/ML SUBCUT SCH ×5 (00:23→23:30)
[2021-05-26] MEDS: IPRATROPIUM/ALBUTEROL 0.5-3(2.5)MG/3ML NEB HHN SCH ×4 (01:03→20:59)
[2021-05-26 05:27] LABS: HEMATOCRIT. 51.3 % (42.0-52.0); HEMOGLOBIN. 16.7 g/dL (14.0-18.0); MEAN CORPUSCULAR HEMOGLOBIN 24.2 pg (28.0-32.0); MEAN CORPUSCULAR VOLUME 74.4 fL (80.0-94.0); RED CELL DISTRIBUTION WIDTH 18.7 % (11.6-14.6)
[2021-05-26] MEDS: BLOOD SUGAR DIAGNOSTIC STRIP TEST SCH ×4 (06:00→17:45)
[2021-05-26] MEDS: METHYLPREDNISOLONE SOD SUCC 125 MG/2 ML VIAL IV SCH ×2 (06:18→17:45)
[2021-05-26] MEDS: CARVEDILOL 12.5MG TABLET PO SCH ×2 (08:12→21:37)
[2021-05-26] MEDS: AMLODIPINE 5MG TABLET PO SCH (08:12)
[2021-05-26] MEDS: FAMOTIDINE 20MG/2ML VIAL IV SCH (08:12)
[2021-05-26 09:45] LABS: BG BASE EXCESS 3.8 mmol/L (-2.0-2.0); BG CARBOXYHEMOGLOBIN 0.7 % (0.5-1.5); BG DEOXYHEMOGLOBIN 1.8 % (0.0-5.0); BG HCO3 ACT 28.9 mmol/L (22.0-26.0); BG METHEMOGLOBIN 0.4 % (0.0-1.5); BG OXYGEN SATURATION 98.2 % (92.0-98.5); BG OXYHEMOGLOBIN 97.1 % (94.0-97.0); BG PCO2 44.9 mmHg (35.0-45.0); BG PH 7.427 (7.350-7.450); BG PO2 107.4 mmHg (75.0-100.0); BG SAMPLE SITE RIGHT RADIAL; BG TOTAL HEMOGLOBIN 17.7 g/dL (12.0-18.0); BG VENT MODE NASAL CANNULA
[2021-05-26] MEDS: ACETYLCYSTEINE 100MG/ML 10% VIAL 4ML INH SCH (12:49)
[2021-05-26] MEDS: VANCOMYCIN 750 MG PREMIX 150 ML IV SCH (13:55)
[2021-05-26 14:14] LABS: PLATELET ESTIMATE SLIGHTLY DECREASED
[2021-05-26 14:15] LABS: MEAN PLATELET VOLUME 10.6 fl (7.4-10.4); PLATELET 123 x1000/uL (130-400)
[2021-05-26] MEDS: ENOXAPARIN 120MG/0.8ML SYR SUBCUT SCH ×2 (14:32→21:38)
[2021-05-27] VITALS (12 sets, daily range): BP systolic 127–160; BP diastolic 34–98
[2021-05-27] MEDS: IPRATROPIUM/ALBUTEROL 0.5-3(2.5)MG/3ML NEB HHN SCH ×4 (02:18→20:27)
[2021-05-27] MEDS: ACETYLCYSTEINE 100MG/ML 10% VIAL 4ML INH SCH ×3 (02:18→15:00)
[2021-05-27] MEDS: BLOOD SUGAR DIAGNOSTIC STRIP TEST SCH ×4 (05:29→17:02)
[2021-05-27] MEDS: METHYLPREDNISOLONE SOD SUCC 125 MG/2 ML VIAL IV SCH ×2 (05:30→17:02)
[2021-05-27] MEDS: INSULIN LISPRO 100 UNITS/ML SUBCUT SCH ×3 (06:00→17:03)
[2021-05-27] MEDS: GUAIFENESIN 200MG/10ML SUGAR FREE UDC NG SCH ×3 (06:30→17:02)
[2021-05-27] MEDS: FAMOTIDINE 20MG/2ML VIAL IV SCH (08:33)
[2021-05-27] MEDS: ENOXAPARIN 120MG/0.8ML SYR SUBCUT SCH (08:34)
[2021-05-27] MEDS: AMLODIPINE 5MG TABLET PO SCH (08:34)
[2021-05-27] MEDS: CARVEDILOL 12.5MG TABLET PO SCH ×2 (08:35→21:29)
[2021-05-27] MEDS: DEXTROSE 5% WATER 1,000 ML IV SCH (12:31)
[2021-05-27] MEDS: VANCOMYCIN 750 MG PREMIX 150 ML IV SCH (15:06)
[2021-05-27] MEDS ORDERED: ENOXAPARIN 120MG/0.8ML SYR SUBCUT SCH (16:27)
[2021-05-28] VITALS (71 sets, daily range): BP systolic 57–160; BP diastolic 32–102
[2021-05-28] MEDS: GUAIFENESIN 200MG/10ML SUGAR FREE UDC NG SCH ×5 (02:01→19:44)
[2021-05-28] MEDS: INSULIN LISPRO 100 UNITS/ML SUBCUT SCH ×5 (02:04→23:20)
[2021-05-28] MEDS: ACETYLCYSTEINE 100MG/ML 10% VIAL 4ML INH SCH ×3 (02:46→16:26)
[2021-05-28] MEDS: IPRATROPIUM/ALBUTEROL 0.5-3(2.5)MG/3ML NEB HHN SCH ×4 (02:47→21:00)
[2021-05-28] MEDS: BLOOD SUGAR DIAGNOSTIC STRIP TEST SCH ×5 (06:41→23:17)
[2021-05-28 07:16] LABS: HEMATOCRIT. 51.4 % (42.0-52.0); HEMOGLOBIN. 16.4 g/dL (14.0-18.0); MEAN CORPUSCULAR VOLUME 75.5 fL (80.0-94.0); RED BLOOD CELL COUNT 6.81 mill/uL (4.7-6.1); RED CELL DISTRIBUTION WIDTH 18.7 % (11.6-14.6)
[2021-05-28] MEDS ORDERED: FENTANYL CITRATE/PF 2,500 MCG in SODIUM CHLORIDE 0.9% 200 ML IV PRN (08:00)
[2021-05-28] MEDS ORDERED: VECURONIUM BROMIDE 10 MG/VIAL IV ONE (08:08)
[2021-05-28] MEDS ORDERED: ETOMIDATE 2MG/ML 10ML VIAL IV ONE (08:08)
[2021-05-28] MEDS: CARVEDILOL 12.5MG TABLET PO SCH ×2 (08:20→19:44)
[2021-05-28] MEDS: AMLODIPINE 5MG TABLET PO SCH (08:21)
[2021-05-28] MEDS: FAMOTIDINE 20MG/2ML VIAL IV SCH (08:28)
[2021-05-28] MEDS ORDERED: METHYLPREDNISOLONE SOD SUCC 125 MG/2 ML VIAL IV SCH (09:00)
[2021-05-28 09:03] LABS: BG BASE EXCESS 2.3 mmol/L (-2.0-2.0); BG CARBOXYHEMOGLOBIN 0.9 % (0.5-1.5); BG DEOXYHEMOGLOBIN 1.3 % (0.0-5.0); BG FRACTION INSPIRED OXYGEN 100; BG HCO3 ACT 30.1 mmol/L (22.0-26.0); BG METHEMOGLOBIN 0.6 % (0.0-1.5); BG OXYGEN SATURATION 98.7 % (92.0-98.5); BG OXYHEMOGLOBIN 97.2 % (94.0-97.0); BG PCO2 58.9 mmHg (35.0-45.0); BG PH 7.327 (7.350-7.450); BG PO2 136.9 mmHg (75.0-100.0); BG SAMPLE SITE RIGHT RADIAL; BG TOTAL HEMOGLOBIN 17.1 g/dL (12.0-18.0); BG TOTAL RESPIRATORY RATE 20 b/min; BG VENT MODE VENT - AC
[2021-05-28] MEDS: DEXTROSE 5% WATER 1,000 ML IV SCH (09:53)
[2021-05-28 13:45] LABS: NUCLEATED RED BLOOD CELLS 3 /100 WBC; PLATELET ESTIMATE NORMAL
[2021-05-28 13:46] LABS: MEAN PLATELET VOLUME 12.2 fl (7.4-10.4); PLATELET 135 x1000/uL (130-400)
[2021-05-28] MEDS ORDERED: METRONIDAZOLE 500MG TABLET PO SCH (14:00)
[2021-05-28] MEDS: METRONIDAZOLE 500 MG PREMIX 100 ML IV SCH ×2 (15:23→23:16)
[2021-05-28] MEDS: NOREPINEPHRINE 8 MG in DEXT 5% WATER 242 ML IV PRN (18:43)
[2021-05-29] VITALS (13 sets, daily range): BP systolic 78–121; BP diastolic 40–87
[2021-05-29] MEDS: NOREPINEPHRINE 8 MG in DEXT 5% WATER 242 ML IV PRN (00:42)
[2021-05-29] MEDS: ACETYLCYSTEINE 100MG/ML 10% VIAL 4ML INH SCH (01:21)
[2021-05-29] MEDS: IPRATROPIUM/ALBUTEROL 0.5-3(2.5)MG/3ML NEB HHN SCH (01:21)
[2021-05-29] MEDS ORDERED: NOREPINEPHRINE 32 MG in DEXT 5% WATER 218 ML IV PRN (20:00)
== END 2021-05-29 03:39 | DRG 870 ==
LOC: ER 21:13 → MICUSO 05-15 00:52 → EDBEDREQ 05-15 00:56 → EDBEDREQTM 05-15 00:56 → EDBEDREQDT 05-15 00:56 → EDBEDREQSVC 05-15 00:56 → ENRESERV 05-15 08:12 → 3WST 05-16 05:57 → CVICU 05-17 18:00 → 5EST 05-26 18:38 → CVICU 05-28 07:45
PROVIDERS: ADMIT Internal Medicine; ATTEND Internal Medicine
PROC: 5A09357 Assistance with Respiratory Ventilation, Less than 24 Consecutive Hours, Continuous Positive Airway Pressure (ICD-10-PCS; 2021-05-14)
PROC: 5A1955Z Respiratory Ventilation, Greater than 96 Consecutive Hours (ICD-10-PCS; principal; 2021-05-15)
PROC: 0BH17EZ Insertion of Endotracheal Airway into Trachea, Via Natural or Artificial Opening (ICD-10-PCS; 2021-05-15)
PROC: 5A09357 Assistance with Respiratory Ventilation, Less than 24 Consecutive Hours, Continuous Positive Airway Pressure (ICD-10-PCS; 2021-05-16)
PROC: 05HY33Z Insertion of Infusion Device into Upper Vein, Percutaneous Approach (ICD-10-PCS; 2021-05-17)
PROC: 5A12012 Performance of Cardiac Output, Single, Manual (ICD-10-PCS; 2021-05-29)
DX: A41.02 Sepsis due to Methicillin resistant Staphylococcus aureus (principal); I50.23 Acute on chronic systolic (congestive) heart failure; J96.01 Acute respiratory failure with hypoxia; J15.212 Pneumonia due to Methicillin resistant Staphylococcus aureus; R65.21 Severe sepsis with septic shock; E44.1 Mild protein-calorie malnutrition; I13.0 Hypertensive heart and chronic kidney disease with heart failure and stage 1 through stage 4 chronic kidney disease, or unspecified chronic kidney disease; E87.2 Acidosis; N17.9 Acute kidney failure, unspecified; I48.19 Other persistent atrial fibrillation; I42.0 Dilated cardiomyopathy; J44.0 Chronic obstructive pulmonary disease with (acute) lower respiratory infection; E87.0 Hyperosmolality and hypernatremia; I47.2 Ventricular tachycardia; I48.92 Unspecified atrial flutter; Z51.5 Encounter for palliative care; E11.51 Type 2 diabetes mellitus with diabetic peripheral angiopathy without gangrene; E87.5 Hyperkalemia; D64.9 Anemia, unspecified; E11.22 Type 2 diabetes mellitus with diabetic chronic kidney disease; E66.9 Obesity, unspecified; E87.6 Hypokalemia; G47.33 Obstructive sleep apnea (adult) (pediatric); Z20.822 Contact with and (suspected) exposure to COVID-19; G89.4 Chronic pain syndrome; I34.0 Nonrheumatic mitral (valve) insufficiency; I46.9 Cardiac arrest, cause unspecified; I49.3 Ventricular premature depolarization; I87.8 Other specified disorders of veins; Z79.01 Long term (current) use of anticoagulants; Z79.899 Other long term (current) drug therapy; Z83.3 Family history of diabetes mellitus; Z82.49 Family history of ischemic heart disease and other diseases of the circulatory system; Z87.891 Personal history of nicotine dependence; Z99.81 Dependence on supplemental oxygen; Z68.36 Body mass index [BMI] 36.0-36.9, adult; Z79.1 Long term (current) use of non-steroidal anti-inflammatories (NSAID)
CPT/HCPCS: 36415; 36600; 71045; 74018; 76937; 80048; 80053; 80202; 80320; 81003; 82375; 82550; 82728; 82805; 82962; 83605; 83615; 83735; 83880; 84100; 84132; 84145; 84443; 84478; 84484; 85014; 85018; 85025; 85384; 86140; 86850; 86900; 87070; 87077; 87186; 92610; 93005; 93923; 94003; 94640; 94660; 97162; 99291; A6261; C1725; C9113; J0360; J0610; J0692; J1100; J1650; J1815; J1940; J1956; J2060; J2370; J2704; J2920; J2930; J3370; J3480; J3490; J7060; J7070; J7608; U0003; U0005; G0480